=== PATIENT | male | born 1950 ===

== ENCOUNTER 2019-04-10 09:38 | Inpatient (IN) | payer MEDICARE ==
[2019-04-10] VITALS (594 sets, daily range): BP systolic 105–142; BP diastolic 76–99; PULSE 85–95; TEMP 97.4–98.6; O2SAT 81–100
[~2019-04-10] VITALS: Ht 177.8 cm; Wt 123.1 kg
[2019-04-10 09:50] LABS: BASO % 0.4 % (0.0-2.0); EOS # 0.1 (0.0-0.7); EOS % 1.1 % (0-4.0); GRAN # 6.4 (1.4-6.5); GRAN % 64.1 % (42.2-75.2); HEMATOCRIT 39.2 % (37.0-47.0); HEMOGLOBIN 13.4 g/dl (12.5-16.0); LYMPH # 2.4 (1.2-3.4); LYMPH % 24.5 % (20.0-51.0); MEAN CELL VOLUME 94 fl (80.0-100.0); MEAN CORPUSCULAR HEMOGLOBIN 32 pg (27.0-31.0); MEAN CORPUSCULAR HGB CONC 34 g/dl (33.0-37.0); MEAN PLATELET VOLUME 10.4 fl (7.4-10.4); MONO # 0.9 (0.1-0.6); MONO % 8.9 % (1.7-9.3); PLATELET COUNT 140 K/mm3 (130-400); RED BLOOD COUNT 4.16 M/mm3 (4.10-5.30); REDCELL DISTRIBUTION WIDTH-CV 13.2 % (11.5-14.5)
[2019-04-10 09:55] LABS: INR 1.2 (0.8-3.0); PROTHROMBIN TIME 13.8 SECONDS (9.7-12.8)
[2019-04-10 09:58] LABS: ARTERIAL BLD GAS O2 SATURATION 98.5 % (92-100); ARTERIAL BLD GAS TCO2 CT 25.1; ARTERIAL BLOOD GAS BASE EXCESS -3.1 (-2-2); ARTERIAL BLOOD GAS HCO3 23.6 meq/L (22-26); ARTERIAL BLOOD GAS PCO2 48.7 mmHg (35-45)
[2019-04-10 09:58] LABS: PARTIAL THROMBOPLASTIN TIME 26.3 SECONDS (26.0-37.0)
[2019-04-10 09:59] LABS: ARTERIAL BLOOD GAS PO2 158.9 mmHg (80-100)
[2019-04-10 10:08] LABS: ALANINE AMINOTRANSFERASE 39 U/L (9-52); ALBUMIN 3.4 gm/dL (3.5-5.0); ALKALINE PHOSPHATASE 43 U/L (50-136); ANION GAP 6 mmol/L (7-16); AST,SGOT 35 U/L (15-37); BILIRUBIN,TOTAL 1.3 mg/dL (0.0-1.0); BLOOD UREA NITROGEN 23 mg/dL (7-17); CALCIUM 8.2 mg/dL (8.4-10.2); CARBON DIOXIDE 26 mmol/L (22-30); CHLORIDE 107 mmol/L (98-107); CREATININE, serum 0.92 (0.52-1.25); GLUCOSE 174 mg/dL (74-106); POTASSIUM 4.3 mmol/L (3.4-5.0); SODIUM 138 mmol/L (137-145)
[2019-04-10 10:29] LABS: TROPONIN-I < 0.012 ng/mL (0.000-0.035)
--- NOTE | 2019-04-10 12:35 | NUR ---
Received report from CHARISSE De Leon in ED at 1010. Patient arrived at 1035 via stretcher from ED: intubated, riddle in place, dressing to right hip intact with moderate drainage noted. OG placed at 1049: 59 at the teeth, inserted without incident, patient tolerated well Propofol gtt and fentanyl gtt started at 1145, stopped at 1205. Patient extubated at 1235, tolerated well, alert and oriented, able to talk, oxygenation maintaining well.
--- NOTE | 2019-04-10 14:37 | NUR ---
AUTO REBUILDER student met with the patient to discuss a discharge plan. The patient lives alone in [place]. The patient has a cane and a walker and reports independence with ADLs. The patient's PCP is Dr. Rubin in [place] and patient receives medications from [facility] in [place]. The patient does not have advanced directives in the EMR but reports they are completed and designate Flores Lorenzo . The patient plans to return home upon discharge. There are no additional needs at this time.
--- NOTE | 2019-04-10 14:41 | NUR ---
MANUSCRIPT READER student was called to the ED for a code [facility]. The patient was not coding upon arrival. The patient was tranferred to the ICU once ED stablized the patient.
--- NOTE | 2019-04-10 14:50 | NUR ---
Call made to patient pharmacy [facility] in [place] per patient request for medication list. See med rec.
[2019-04-10] MEDS ORDERED: ASPIRIN 81M81 MG/TA2 PO (15:10)
[2019-04-10] MEDS ORDERED: VITAMIN B COMPL1 SGL PO (15:10)
[2019-04-10] MEDS ORDERED: BYSTOLIC10 MG PO (15:11)
[2019-04-10] MEDS ORDERED: LOTREL 5/20 CAP1 CAP PO (15:11)
[2019-04-10] MEDS ORDERED: MYRBETR50MG PO (15:12)
[2019-04-10] MEDS ORDERED: FOSAMAX 70MG TA70 MG PO (15:15)
[2019-04-10] MEDS ORDERED: ZOLOFT 25MG25 MG PO (15:15)
[2019-04-10] MEDS ORDERED: PRILOSEC 20MG20 MG PO (15:16)
[2019-04-10] MEDS ORDERED: TRICOR145 MG PO (15:16)
--- NOTE | 2019-04-10 15:40 | NUR ---
Assessment, family history, and suicide screening completed
--- NOTE | 2019-04-10 16:00 | NUR ---
Shift reassessment complete at this time. Pt complains of increasing R Hip pain. Will administer PRN oxycodone per orders. Vitals stable at this time. Pt denies any other pain or discomfort. Bed in low position, call light within reach. Will continue to monitor.
--- NOTE | 2019-04-10 17:30 | NUR ---
Right hip dressing changed. Large amount of blood noted on dressing and incontinence pad under patient. Kristopher intact, light pressure applied to stop scant bleeding noted with dressing change. New dressing placed: 4x4, abd, foam tape, and hypafix to reinforce. Patient tolerated well, stated pain 20/10 with movement, given medication-see EMAR.
[2019-04-10 17:41] LABS: ARTERIAL BLD GAS O2 SATURATION 96.7 % (92-100); ARTERIAL BLD GAS TCO2 CT 24.8; ARTERIAL BLOOD GAS BASE EXCESS -1.6 (-2-2); ARTERIAL BLOOD GAS HCO3 23.5 meq/L (22-26); ARTERIAL BLOOD GAS PCO2 41.3 mmHg (35-45); ARTERIAL BLOOD GAS PO2 91.4 mmHg (80-100); ARTERIAL BLOOD GAS pH 7.37 (7.35-7.45)
--- NOTE | 2019-04-10 17:43 | NUR ---
PT EXTUBATED TO 5LPM OXYMASK WITHOUT COMPLICATION AT [address] Michel MONTANEZ. BILATERAL BREATHSOUNDS, NO STRIDOR NOTED AT THIS TIME.
--- NOTE | 2019-04-10 18:44 | NUR ---
Pt reports pain is a 10/10 after administration of morphine 1 mg. Ice applied to incision at request of Pt and will administer another 1 mg of morphine per orders at 0.
--- NOTE | 2019-04-10 19:30 | NUR ---
Bedside report given to CHARISSE Story. Care transferred at this time.
--- NOTE | 2019-04-10 19:52 | NUR ---
Patient assessment completed and charted at this time, please see documentation for details. Patient resting in bed, plan of pain care discussed with patient and over phone. Patient still having increased pain, developed plan for him. Will continue to monitor.
--- NOTE | 2019-04-10 22:28 | NUR ---
Additional dose of roxicodone given per patient order.
[2019-04-11] VITALS (655 sets, daily range): BP systolic 124–154; BP diastolic 88–101; PULSE 77–130; TEMP 98–99.1; O2SAT 79–95
[2019-04-11 05:20] LABS: BASO % 0.2 % (0.0-2.0); EOS % 0.3 % (0-4.0); GRAN # 7.7 (1.4-6.5); GRAN % 76.4 % (42.2-75.2); HEMOGLOBIN 12.1 g/dl (13.5-18.0); LYMPH # 1.4 (1.2-3.4); MEAN CELL VOLUME 94 fl (80.0-100.0); MEAN CORPUSCULAR HEMOGLOBIN 33 pg (27.0-31.0); MEAN CORPUSCULAR HGB CONC 35 g/dl (33.0-37.0); MEAN PLATELET VOLUME 10.3 fl (7.4-10.4); MONO # 0.9 (0.1-0.6); MONO % 8.7 % (1.7-9.3); PLATELET COUNT 121 K/mm3 (130-400)
[2019-04-11 05:26] LABS: HEMATOCRIT 34.6 % (42.0-52.0)
[2019-04-11 05:38] LABS: ALBUMIN 3.3 gm/dL (3.5-5.0); BILIRUBIN,TOTAL 1.8 mg/dL (0.0-1.0); CALCIUM 8.4 mg/dL (8.4-10.2); CREATININE, serum 1.05 (0.66-1.25); MAGNESIUM 1.7 mg/dL (1.6-2.3); PHOSPHOROUS 4.3 mg/dL (2.5-4.5); POTASSIUM 3.8 mmol/L (3.4-5.0); TOTAL PROTEIN 5.8 gm/dL (6.4-8.2)
--- NOTE | 2019-04-11 08:25 | NUR ---
NOTIFIED DR FARMER OF PATIENT'S HR CONSISTENTLY BEING ABOVE 130-140 ESTELLA WHILE PATIENT IS TALKING. PT CONTINUES TO BE IN AFIB.
--- NOTE | 2019-04-11 08:40 | NUR ---
PICC intact right upper arm with sterile dressing change done with insertion site cleansed with chloraprep x 1, chlorhexidine impregnated disk applied, skin prep, stat lock, and tegaderm applied. no signs or symptoms of IV complications noted. no concerns voiced. re-wrapped with juan to protect catheter.
--- NOTE | 2019-04-11 09:59 | NUR ---
Initial visit Patient thanked Whipped Topping Finisher for looking in on him, offering God's blessings and keeping him in Whipped Topping Finisher's prayers.
--- NOTE | 2019-04-11 13:04 | NUR ---
REPORT GIVEN TO ADE MCQUEEN ON SURGICAL UNIT. ADE BRINGING SURG BED DOWN TO TRANSFER PATIENT ONTO AND THEN TRANSFER TO SURGICAL FLOOR.
--- NOTE | 2019-04-11 14:12 | NUR ---
STILL AWAITING FOR ADE MCQUEEN TO BRING BED DOWN TO ICU IN ORDER TO TRANSFER PATIENT TO SURGICAL UNIT. ATTEMPTED TO CALL SURGICAL UNIT WITH NO ANSWER. ATTEMPTED TO GET TRANSFERRED TO ADE MCQUEEN WITH NO ANSWER.
--- NOTE | 2019-04-11 14:25 | NUR ---
SURGICAL BED BROUGHT DOWN BY KHUSHBOO HEARD. PT TRANSFERRED TO SURGICAL BED AND TRANSPORTED UP TO SURGICAL ROOM 347. PT'S SISTER AT BEDSIDE AND TRANSPORTED PT'S BELONGINGS WITH PATIENT.
--- NOTE | 2019-04-11 14:30 | NUR ---
PATIENT ARRIVED TO ROOM 347 VIA BED FROM ICU. PATIENT SETTELED INTO ROOM.
--- NOTE | 2019-04-11 15:00 | NUR ---
SEE SHIFT ASSESSMENT.
--- NOTE | 2019-04-11 15:45 | NUR ---
JERZY OVALLES CALLED AND NOTIFIED THAT THE PATIENT IS TACHYPNIC WITH PURSE-LIP BREATHING. PATIENT HAS A WET WASH RAG THAT THE PATIENT IS BITING ON. PATIENT GIVEN PRN MORPHINE AND SCHEDULED TYLENOL WITHOUT RELIEF.
--- NOTE | 2019-04-11 16:31 | NUR ---
REPORT GIVEN TO CHARISSE YANES.
--- NOTE | 2019-04-11 16:58 | NUR ---
Patient resting in bed at this time, call light in reach, ice pack on right hip. Patient reports pain is under control at this time. Will continue to monitor.
--- NOTE | 2019-04-11 18:39 | NUR ---
Family member at bedside throughout the day. Patient in pain after moving from ICU to surgical floor. Call light within reach. Reported off to primary nurse, Maria Del Carmen MCQUEEN.
--- NOTE | 2019-04-11 19:30 | NUR ---
Patient reports pain 5/10, worse with movement. Medicated with Morphine 2mg IVP at this time. Has right PICC, both lumens flushed well.
--- NOTE | 2019-04-11 20:01 | NUR ---
Patient requested staff to continue to keep pain under control through the night since it took so long to get pain under control originally. This nurse and oncoming nurse voiced understanding. Current pain prior to night nurse taking over was 6/10. She will continue to monitor.
--- NOTE | 2019-04-11 21:10 | NUR ---
Patient has CPAP on, rates pain 4/10, Medicated with Oxycodone, scheduled Tylenol and IV Morphine. Dressing to right hip bulky, D/I. Ice pack placed. Has riddle to BSD with yellow urine noted. Pt hoping to get sleep.
--- NOTE | 2019-04-12 00:05 | NUR ---
Patient awake, reports pain is well controlled with Morphine and Oxycodone. Medicated with Morphine 2mg IV at this time.
--- NOTE | 2019-04-12 03:15 | NUR ---
Patient refused ES Tylenol at this time.
--- NOTE | 2019-04-12 05:12 | NUR ---
Patient has elevated BP, medicated with Hydralazine 10mg IV at this time.
[2019-04-12 05:35] VITALS: BP 155/84; PULSE 98
[2019-04-12 06:26] LABS: BASO % 0.2 % (0.0-2.0); EOS % 0.1 % (0-4.0); GRAN # 11.7 (1.4-6.5); GRAN % 85.8 % (42.2-75.2); HEMATOCRIT 40.3 % (42.0-52.0); HEMOGLOBIN 13.9 g/dl (13.5-18.0); LYMPH # 0.9 (1.2-3.4); LYMPH % 6.7 % (20.0-51.0); MEAN CELL VOLUME 93 fl (80.0-100.0); MEAN CORPUSCULAR HEMOGLOBIN 32 pg (27.0-31.0); MEAN CORPUSCULAR HGB CONC 35 g/dl (33.0-37.0); MEAN PLATELET VOLUME 10.9 fl (7.4-10.4); MONO # 0.9 (0.1-0.6); MONO % 6.7 % (1.7-9.3); PLATELET COUNT 138 K/mm3 (130-400); RED BLOOD COUNT 4.34 M/mm3 (4.20-5.60); REDCELL DISTRIBUTION WIDTH-CV 12.9 % (11.5-14.5)
[2019-04-12 06:34] LABS: ALBUMIN 3.8 gm/dL (3.5-5.0); BILIRUBIN,TOTAL 2.3 mg/dL (0.0-1.0); CALCIUM 8.5 mg/dL (8.4-10.2); CREATININE, serum 0.74 (0.66-1.25); MAGNESIUM 1.9 mg/dL (1.6-2.3); PHOSPHOROUS 2.6 mg/dL (2.5-4.5); POTASSIUM 3.6 mmol/L (3.4-5.0); TOTAL PROTEIN 6.8 gm/dL (6.4-8.2)
[2019-04-12 07:42] VITALS: BP 157/101; PULSE 105; TEMP 99.2
--- NOTE | 2019-04-12 08:00 | NUR ---
SEE MORNING ASSESSMENT.
--- NOTE | 2019-04-12 08:36 | NUR ---
PATIENT STATES THAT HE IS FEELING ANXIOUS AND NAUSEATED THIS MORNING. NOTIFIED.
[2019-04-12 11:57] VITALS: BP 158/105; PULSE 100; PULSE 78; TEMP 97.9; TEMP 98.8
[2019-04-12 16:06] VITALS: BP 128/99; PULSE 112; TEMP 98.4
--- NOTE | 2019-04-12 19:43 | NUR ---
Patient awake, medicated with Oxycodone and ES Tylenol at this time for pain to right hip 0/10 laying still and 10/10 with movement. Has rt PICC that flushes well with good blood return. Initiated Potassium replacement 1 of 2 bags to be given. SL to left hand without redness or swelling.
[2019-04-12 20:00] VITALS: BP 147/106; PULSE 66; TEMP 98.3
--- NOTE | 2019-04-12 20:04 | NUR ---
REPORT GIVEN TO CHARISSE WOLFE.
--- NOTE | 2019-04-12 20:40 | NUR ---
Second bag of IV Potassium infusing without problem.
--- NOTE | 2019-04-12 21:44 | NUR ---
Medicated with Morphine 2mg IVP for pain 5/10 to right hip. Patient has CPAP on and is ready for bed. S.O at bedside.
[2019-04-13] VITALS (13 sets, daily range): BP systolic 108–158; BP diastolic 56–111; PULSE 51–90; TEMP 97.7–99.8
--- NOTE | 2019-04-13 03:15 | NUR ---
Patient awake, reports no oral fluid since midnight for possible surgery today. Reports pain to right hip is "minimal", medicated with Morphine 2mg IVP with Zofran 4mg IV. Held Tylenol at this time.
[2019-04-13 06:32] LABS: BASO % 0.2 % (0.0-2.0); EOS # 0.1 (0.0-0.7); EOS % 0.7 % (0-4.0); GRAN # 10.5 (1.4-6.5); GRAN % 76.7 % (42.2-75.2); HEMATOCRIT 38.7 % (42.0-52.0); HEMOGLOBIN 13.4 g/dl (13.5-18.0); LYMPH # 1.6 (1.2-3.4); LYMPH % 11.5 % (20.0-51.0); MEAN CELL VOLUME 94 fl (80.0-100.0); MEAN CORPUSCULAR HEMOGLOBIN 32 pg (27.0-31.0); MEAN CORPUSCULAR HGB CONC 35 g/dl (33.0-37.0); MEAN PLATELET VOLUME 10.7 fl (7.4-10.4); MONO # 1.4 (0.1-0.6); MONO % 10.3 % (1.7-9.3); PLATELET COUNT 152 K/mm3 (130-400); RED BLOOD COUNT 4.14 M/mm3 (4.20-5.60); REDCELL DISTRIBUTION WIDTH-CV 12.7 % (11.5-14.5)
--- NOTE | 2019-04-13 06:44 | NUR ---
Medicated with oral Ativan 0.5mg at this time for anxiety regarding surgery.
[2019-04-13 06:56] LABS: CALCIUM 8.5 mg/dL (8.4-10.2); CREATININE, serum 0.95 (0.66-1.25); MAGNESIUM 2.1 mg/dL (1.6-2.3); PHOSPHOROUS 3.2 mg/dL (2.5-4.5)
--- NOTE | 2019-04-13 09:45 | NUR ---
Patient alert and oriented, answers questions appropriately. See assessment. RLE with incision dressing CDI, no redness noted. 1+ edema to RLE, pulses palpable. NWB to RLE. No c/o at this time.
--- NOTE | 2019-04-13 20:30 | NUR ---
PATIENT COMPLAINS OF SHARP, BURNING PAIN TO RIGHT HIP. MEDICATED WITH MORPHINE 2MG IVP AND OXYCODONE 5MG PO, WELL HS MEDS. DRSG TO RIGHT HIP D/I, ICE PACK IN PLACE. WEARING CPAP AT THIS TIME. IVF INFUSING TO LEFT HAND WITHOUT REDNESS OR SWELLING, RIGHT PICC FLUSHED AT THIS TIME. WEARING SCDS BILATERAL LOWER LEGS. PATIENT REPORTS FEELING RELIEVED FINALLY HAVING HIS SURGERY COMPLETED.
[2019-04-14] VITALS (8 sets, daily range): BP systolic 124–154; BP diastolic 79–128; PULSE 57–113; TEMP 97.5–99
--- NOTE | 2019-04-14 00:11 | NUR ---
Patient complains of 9/10 pain to right hip. Medicated with Morphine 2mg IVP and Tramadol 100mg po. Also given Ativan 0.5mg po at this time.
--- NOTE | 2019-04-14 01:16 | NUR ---
PATIENT CONTINUES TO COMPLAIN OF PAIN, "TWISTING" TO RIGHT HIP. MEDICATED WITH OXYCODONE 10MG PO AND PHENERGAN 25MG FOR MILD NAUSEA.
--- NOTE | 2019-04-14 04:27 | NUR ---
Patient awake, reports pain is much improved. States "I sure was out of it yesterday". Moving right leg without significant discomfort.
[2019-04-14 07:20] LABS: HEMOGLOBIN 12.1 g/dl (13.5-18.0); MEAN CELL VOLUME 94 fl (80.0-100.0); MEAN CORPUSCULAR HEMOGLOBIN 33 pg (27.0-31.0); MEAN CORPUSCULAR HGB CONC 35 g/dl (33.0-37.0); MEAN PLATELET VOLUME 11.6 fl (7.4-10.4); PLATELET COUNT 157 K/mm3 (130-400); RED BLOOD COUNT 3.69 M/mm3 (4.20-5.60); REDCELL DISTRIBUTION WIDTH-CV 12.4 % (11.5-14.5)
[2019-04-14 07:21] LABS: HEMATOCRIT 34.6 % (42.0-52.0)
[2019-04-14 07:33] LABS: CALCIUM 8.4 mg/dL (8.4-10.2); CREATININE, serum 0.82 (0.66-1.25); POTASSIUM 4.3 mmol/L (3.4-5.0)
--- NOTE | 2019-04-14 08:00 | NUR ---
PATIENT IS RESTING IN BED THIS MORNING. PATIENT IS DROWSY, BUT AROUSES EASILY TO NAME. PATIENT STATES THAT HE DID NOT SLEEP WELL DURING THE NIGHT. PATIENT IS A&OX4. IRREGULAR HEART RHYTHM WITH TACHYCARDIA NOTED, VSS. TELE IN PLACE. BOWEL SOUNDS ACTIVE ALL FOUR QUADRANTS. PATIENT TOLERATING DIET WITHOUT ANY COMPLAINTS OF N/V. POSITIVE PEDAL PULSES EQUAL BILATERALLY. CAP REFILL < 3 SECONDS. CMS INTACT. BULKY OCCLUSIVE FOAM TAPE DRESSING TO RIGHT HIP IS CD&I. PICC LINE TO RUE. LEFT HAND TO INT. INDWELLING TANG CATHETER TO DEPENDENT DRAINAGE WITH CLEAR BRIDGETTE URINE PRESENT IN TANG BAG. CALL LIGHT WITHIN REACH. PATIENT DENIES ANY OTHER NEEDS AT THIS TIME.
[2019-04-14 08:18] LABS: BAND 15 % (0-10); LYMPHOCYTE 3 % (20.0-51.0); NEUTROPHILS 79 % (42.0-75.2); PLATELET ESTIMATE NORMAL (NORMAL)
--- NOTE | 2019-04-14 11:51 | NUR ---
Follow-up visit; Patient resting, Pattern Attendant offered spiritual care to his sister, also letting her know Neri is in her prayers and spiritual care is always available at [place].
--- NOTE | 2019-04-14 15:09 | NUR ---
SW met with the patient to review discharge plan and to discuss PT's recommendation of considering post-acute rehab. The patient reports that the still plans to return home upon discharge and will receive help from his friend, Flores. He states he will hit it hard with therapy tomorrow and see how he feels. He states that he would prefer to receive outpatient PT at [facility] in [place], instead of post-acute rehab. SW to continue to monitor and follow.
--- NOTE | 2019-04-14 16:00 | NUR ---
PATIENTS TANG CATHETER DISCONTINUED PER ORDERS. 8 MLS OF STERILE WATER ASPIRATED FROM BALLOON. BALLOON TIP INTACT. PATIENT TOLERATED WELL. ELO CARE AND BED BATH PROVIDED. PATIENT ENCOURAGED TO DRINK PLENTY OF FLUIDS. PATIENTS RIGHT HIP OCCLUSIVE TAPE DRESSING REMOVED. STERI STRIPS IN PLACE OVER INCISION SITE. AQUACEL DRESSING PLACED OVER RIGHT HIP INCISION AND STERI STRIPS. PATIENT TOLERATED WELL.
--- NOTE | 2019-04-14 21:15 | NUR ---
Lying in bed with CPAP on. Removes CPAP for assessment. Respirations deep and labored. When asked patient if this is new symptom patient and spouse deny and say that this is normal for him. Patient explains that sometimes he just takes in deeper breaths per the doctor's orders. Heart rate is irregular, tele shows Afib with BBB. Patient denies pain. Dressing to right hip CDI. Patient says that he is tired and hopes to get sleep tonight. Spouse in room. Denies further needs at this time. Reapplies CPAP.
--- NOTE | 2019-04-14 23:35 | NUR ---
Lying in bed with eyes closed. Eyes open when name called out. Using CPAP while sleeping. Denies pain or shortness of air. Denies further needs at this time.
--- NOTE | 2019-04-15 02:39 | NUR ---
Requests Ativan due to mind racing and unable to go to sleep. Patient says that the previous night he had a Ativan and it helped. Administered Ativan as prescribed. Patient says that he thought he had to pee and by the time he got the urinal ready the sensation was gone. Denies feeling like his bladder is full or painful. Requests milk and ilana crakers. Provided at this time. Patient reapplies CPAP and denies further needs.
[2019-04-15 03:19] VITALS: BP 136/93; PULSE 90; TEMP 97.3
--- NOTE | 2019-04-15 03:30 | NUR ---
Lying in bed with eyes open. Denies pain. Dressing to right hip CDI. Asked patient if he feels the need to urinate and he declines at this time. Asked patient if he feels pressure or uncomfortable because he cannot urinate and the patient declines. Respirations labored with movement or talking. Using CPAP. Denies further needs at this time.
--- NOTE | 2019-04-15 05:46 | NUR ---
Patient able to void 325mL yellow urine. Denies pain with urination. Denies further needs at this time.
--- NOTE | 2019-04-15 06:40 | NUR ---
appears to be dozing but awakens easily, bedside shift report received from CHARISSE Lerma
[2019-04-15 06:58] LABS: BASO % 0.1 % (0.0-2.0); GRAN # 14.1 (1.4-6.5); GRAN % 85.8 % (42.2-75.2); HEMOGLOBIN 11.4 g/dl (13.5-18.0); LYMPH # 0.8 (1.2-3.4); MEAN CELL VOLUME 94 fl (80.0-100.0); MEAN CORPUSCULAR HEMOGLOBIN 33 pg (27.0-31.0); MEAN CORPUSCULAR HGB CONC 34 g/dl (33.0-37.0); MEAN PLATELET VOLUME 11.4 fl (7.4-10.4); MONO # 1.4 (0.1-0.6); MONO % 8.2 % (1.7-9.3); PLATELET COUNT 172 K/mm3 (130-400); RED BLOOD COUNT 3.51 M/mm3 (4.20-5.60); REDCELL DISTRIBUTION WIDTH-CV 12.6 % (11.5-14.5)
[2019-04-15 07:03] LABS: HEMATOCRIT 33.1 % (42.0-52.0)
[2019-04-15 07:16] LABS: CALCIUM 8.7 mg/dL (8.4-10.2); CREATININE, serum 1.3 (0.66-1.25); MAGNESIUM 2.4 mg/dL (1.6-2.3); POTASSIUM 4.5 mmol/L (3.4-5.0)
[2019-04-15 07:47] VITALS: BP 139/97; PULSE 66; TEMP 98.2
--- NOTE | 2019-04-15 08:00 | NUR ---
sitting up on side of bed and has had breakfst and tolerated well, is ready to lie back in bed, technical buyer called and stated his heart rate was elevated, full assessment completed, see interventions for further info, assisted to lying back in bed and is ready to take a nap, CPAP on,
--- NOTE | 2019-04-15 08:05 | NUR ---
called studio technician video operator and she states his heart rate is back down now
--- NOTE | 2019-04-15 09:15 | NUR ---
Dr Garrison and care team in to see patient
--- NOTE | 2019-04-15 09:44 | NUR ---
renal social worker in visiting with patient and his , physical therapy in to work with patient
--- NOTE | 2019-04-15 09:52 | NUR ---
SW attended clinical rounds. The patient's significant other, Flores, at bedside. The patient's WBC count elevated and he is to have a repeat chest x-ray today. The hospitalist then discussed PT's recommendation of post-acute rehab. The patient reports that he would be in agreeance to this. SW then followed up with the patient and Flores and presented and explained the Patient Choice Form. The patient preferred to stay in [place] instead of [place] for privacy and he chose [facility]. Patient Choice Form signed by the patient and he was provided a copy. SW consulted IPR Director, Jeanette. SW awaiting screen.
--- NOTE | 2019-04-15 10:00 | NUR ---
physical therapy states patient was able to ambulate to the doorway and then to recliner, was very sleepy and dozing during exercises
--- NOTE | 2019-04-15 10:30 | NUR ---
remains up in chair, dozes off easily, IV fluids started, will try and take a nap and reminded to use CPAP if he does, verbalizes understanding
--- NOTE | 2019-04-15 10:30 | NUR ---
PICC intact right upper arm. With sterile technique right upper arm PICC dressing change done with insertion site cleansed with ChloraPrep 1, chlorhexidine impregnated disc applied, skin prep, StatLock, and Tegaderm applied. No signs or symptoms of IV complications noted. No concerns voiced. Arm wrapped with Billy to protect catheter.
--- NOTE | 2019-04-15 11:00 | NUR ---
occupational therapy in to work with patient
--- NOTE | 2019-04-15 12:00 | NUR ---
occupational therapy assited patient with am hygiene and he tolerated well, sitting up in chair at this time and eating lunch,
--- NOTE | 2019-04-15 12:30 | NUR ---
had lunch and tolerated well, medicated with tramadol 100mg po per patient's request
[2019-04-15 13:06] VITALS: BP 122/86; PULSE 77; TEMP 98.4
--- NOTE | 2019-04-15 13:29 | NUR ---
physical therapy in to work with patient, ambulated up to nurses station and back to room
--- NOTE | 2019-04-15 14:30 | NUR ---
is ready to take a nap, lights off, CPAP on
[2019-04-15 16:03] VITALS: BP 143/93; PULSE 73; TEMP 97.5
--- NOTE | 2019-04-15 16:05 | NUR ---
has been napping off and on, denies needs, cPAP on
--- NOTE | 2019-04-15 17:30 | NUR ---
awake and resting in bed, lights on and will sit up on side of bed to eat supper
--- NOTE | 2019-04-15 18:40 | NUR ---
bedside shift report given to CHARISSE Altamirano
[2019-04-15 20:09] VITALS: BP 147/75; PULSE 91; TEMP 98.3
[2019-04-15 23:56] VITALS: BP 140/95; PULSE 59; TEMP 98.3
--- NOTE | 2019-04-16 02:41 | NUR ---
patient doing well throughout the night. has been voiding without issue since removing riddle. patient was found trying to get out of bed himself, and was reoriented and reminded that he needed to call for assistance. [facility] picc is saline locked. SCDs and martin hose on. patient states his pain is minimal and denies need for pain medication other than what is scheduled. patient was assisted with setup for his CPAP and has been wearing it all night. aquacell to R hip CDI. no further needs at this time. will continue to monitor.
--- NOTE | 2019-04-16 07:00 | NUR ---
Reported on to CHARISSE Mancilla.
[2019-04-16 07:10] LABS: BASO % 0.1 % (0.0-2.0); EOS # 0.1 (0.0-0.7); EOS % 1.1 % (0-4.0); GRAN # 7.4 (1.4-6.5); GRAN % 72.3 % (42.2-75.2); HEMOGLOBIN 11.5 g/dl (13.5-18.0); LYMPH # 1.6 (1.2-3.4); LYMPH % 15.4 % (20.0-51.0); MEAN CELL VOLUME 96 fl (80.0-100.0); MEAN CORPUSCULAR HEMOGLOBIN 33 pg (27.0-31.0); MEAN CORPUSCULAR HGB CONC 34 g/dl (33.0-37.0); MEAN PLATELET VOLUME 10.9 fl (7.4-10.4); PLATELET COUNT 168 K/mm3 (130-400); RED BLOOD COUNT 3.53 M/mm3 (4.20-5.60)
--- NOTE | 2019-04-16 07:10 | NUR ---
Shift assessment completed. Pt. complained of right hip pain 01/11. Notified nurse. Telemetry leads in place. PICC in R upper arm covered w/ acewrap, CDI. Aquacell dressing R hip, CDI. TRAV/SCD spencer. Ambulated w/ PT, steady gait. AP 107, irregular.
[2019-04-16 07:23] LABS: CALCIUM 8.2 mg/dL (8.4-10.2); CREATININE, serum 0.94 (0.66-1.25)
[2019-04-16 07:25] LABS: HEMATOCRIT 33.7 % (42.0-52.0)
[2019-04-16 07:45] VITALS: BP 152/100; PULSE 73; TEMP 98
[2019-04-16 10:15] VITALS: BP 134/83; PULSE 63; TEMP 97.5
--- NOTE | 2019-04-16 11:16 | NUR ---
Jeanette, IPR Director, reports that they are able to accept the patient. The patient is to discharge today, 04/16, to [facility]. No additional needs at this time.
--- NOTE | 2019-04-16 11:18 | NUR ---
Reported off to CHARISSE Mancilla.
[2019-04-16] MEDS ORDERED: ELIQUIS 5MG PO (11:46)
[2019-04-16] MEDS ORDERED: ZEBETA 5MG5 MG PO (11:47)
[2019-04-16] MEDS ORDERED: TYLENOL 500MG500 MG PO (11:49)
[2019-04-16] MEDS ORDERED: ROXICODONE 55 MG/TAB PO (11:49)
[2019-04-16] MEDS ORDERED: NEURONTIN100 MG/CAP PO (11:50)
[2019-04-16] MEDS ORDERED: ULTRAM 50MG TAB50 MG PO (11:50)
--- NOTE | 2019-04-16 12:22 | NUR ---
PATIENT DISCHARGING VIA WC TO [facility]. PATIENT DISCHARGING WITH RIGHT UPPER ARM PICC. TELE DC'D. SENT PERSONAL BELONGINGS. GAVE REPORT TO CHARISSE VAUGHAN.
== END 2019-04-16 12:22 | DRG 469 ==
LOC: COL.ER 09:38 → EDSEX 10:44 → ICU 10:44 → SURG 04-11 15:19
PROVIDERS: Family Medicine; Internal Medicine Pulmonary Disease; Orthopaedic Surgery; Physician Assistant; ADMIT Hospitalist
PROC: 0SR90JZ Replacement of Right Hip Joint with Synthetic Substitute, Open Approach (ICD-10-PCS; principal; 2019-04-13 13:00)
DX: M16.11 Unilateral primary osteoarthritis, right hip (principal); I46.9 Cardiac arrest, cause unspecified; N17.9 Acute kidney failure, unspecified; I48.20 Chronic atrial fibrillation, unspecified; G47.33 Obstructive sleep apnea (adult) (pediatric); F32.9 Major depressive disorder, single episode, unspecified; R00.1 Bradycardia, unspecified; I48.0 Paroxysmal atrial fibrillation; K21.9 Gastro-esophageal reflux disease without esophagitis; E78.5 Hyperlipidemia, unspecified; D72.829 Elevated white blood cell count, unspecified; F41.9 Anxiety disorder, unspecified; Z79.82 Long term (current) use of aspirin; Z87.891 Personal history of nicotine dependence
CPT/HCPCS: 99223-AI; 99231-AI; 99232-AI; 99239; C1713; C1751; C1776; J0360; J0690; J1100; J2250; J2270; J2370; J2405; J2704; J2795; J3010; J3475; J3480; J7030; J7121

== ENCOUNTER 2019-04-16 09:51 | Inpatient (IN) | payer MEDICARE ==
[~2019-04-16] VITALS: Ht 177.8 cm; Wt 111.4 kg
[~2019-04-16 09:51] MED LIST: ASPIRIN 81M81 MG/TA2 PO; BYSTOLIC10 MG PO; FOSAMAX 70MG TA70 MG PO; LOTREL 5/20 CAP1 CAP PO; MYRBETR50MG PO; PRILOSEC 20MG20 MG PO; TRICOR145 MG PO; VITAMIN B COMPL1 SGL PO; ZOLOFT 25MG25 MG PO
[2019-04-16] MEDS ORDERED: ELIQUIS 5MG PO (11:46)
[2019-04-16] MEDS ORDERED: ZEBETA 5MG5 MG PO (11:47)
[2019-04-16] MEDS ORDERED: TYLENOL 500MG500 MG PO (11:49)
[2019-04-16] MEDS ORDERED: ROXICODONE 55 MG/TAB PO (11:49)
[2019-04-16] MEDS ORDERED: NEURONTIN100 MG/CAP PO (11:50)
[2019-04-16] MEDS ORDERED: ULTRAM 50MG TAB50 MG PO (11:50)
--- NOTE | 2019-04-16 12:29 | NUR ---
Report from CHARISSE Robert. Pt moved to [facility] via wheelchair, TEDS, yellow gown, gripper socks in place, this nurse introduced herself to pt, he replies "I've already had two pounds of meds, so I don't need anymore." Pt took phone call. HOT DOG VENDER assisting with initial vitals and settling into room.
[2019-04-16 12:35] VITALS: BP 136/98; PULSE 66; TEMP 97.4
--- NOTE | 2019-04-16 14:07 | NUR ---
Pt wishes to maintain full code status. ST in assessing pt. Denies pain, TEDS in place.
[2019-04-16 17:51] VITALS: BP 144/90; PULSE 110; TEMP 98
--- NOTE | 2019-04-16 18:25 | NUR ---
Pt ate supper in bed, was at bedside ordering food on phone from outside source. Pt holding head and c/o pain, gave makenzie per request, edu about calling PRN needing pain meds. Answered 's question about last WBC count WNL this am. Brought sterile water for pt's CPAP.
--- NOTE | 2019-04-16 18:42 | NUR ---
Pt has more visitors at this time.
--- NOTE | 2019-04-16 19:20 | NUR ---
Bedside report to CHARISSE Mancuso. María states they live in separate households, but they are "attached at the hip" and she "will be around all the time" after pt's discharge. Pt eating sub sandwich from outside.
--- NOTE | 2019-04-16 19:38 | NUR ---
Bedside shift report received from Alana MCQUEEN. Patient rests in bed eating supper. Significant other Flores in visiting. Telemetery applied. Patient denies needs at this time.
--- NOTE | 2019-04-16 20:30 | NUR ---
Patient stood at bedside and used urinal. Urine clear isauro. HS meds along with ativan for sleep/anxiety reviewed and given. Reports pain 0 at rest and 4-5 with movement. Max assist with legs into bed and RLE elevated on pillow. hose removed by nurse and SCD's applied. Patient applies CPAP with set up help only. Patient rests with eyes closed shortly after application of CPAP.
[2019-04-17] VITALS (11 sets, daily range): BP systolic 147–156; BP diastolic 95–112; PULSE 48–134; TEMP 98–99.4
--- NOTE | 2019-04-17 03:35 | NUR ---
Patient awake and nurse into check. Urinal on floor and emptied. Patient spilled urine on floor and cleaned/CPAP mask on floor and called RT for cleaning instructions and stated do not have cleaning supplies. Nurse wiped CPAP tubing and mask off with peroxide diluted in saline on 4x4s and set aside to dry. Patients newspaper bag wet with urine. Letters set aside and newpaper bag thrown away after ok'd by patient. Tramadol 50 mg given for right hip pain. Bed alarms on and call light in reach.
--- NOTE | 2019-04-17 05:06 | NUR ---
PATIENT RESTS WITH EYES CLOSED. RESPIRATIONS WITH EASE. CPAP ON.
[2019-04-17 06:15] LABS: CALCIUM 8.5 mg/dL (8.4-10.2); CREATININE, serum 0.82 (0.66-1.25); POTASSIUM 4.1 mmol/L (3.4-5.0)
--- NOTE | 2019-04-17 08:00 | NUR ---
UPON ENTRY TO THE ROOM THE PATIENT IS SITTING UP IN THE CHAIR AT THE BEDSIDE. PATIENT IS A&OX4. TACHYCARDIA WITH IRREGULAR RHYTHM NOTED, VSS. TELE IN PLACE. BOWEL SOUNDS ACTIVE ALL FOUR QUADRANTS. PATIENT TOLERATING DIET WITHOUT ANY COMPLAINTS OF N/V. PICC LINE TO RUE. AQUACEL TO RIGHT HIP IS CD&I. POSITIVE PEDAL PULSES EQUAL BILATERALLY. CAP REFILL <3 SECONDS. CMS INTACT. NON-PITTING EDEMA TO BLE. PATIENT IS RATING HIS RIGHT HIP PAIN AN 8/10 ON A 0-10 SCALE. PATIENT GIVEN PRN DOSE OF PO OXYCODONE PRIOR TO WORKING WITH PHYSICAL THERAPY. CALL LIGHT WITHIN REACH. PATIENT DENIES ANY OTHER NEEDS AT THIS TIME.
--- NOTE | 2019-04-17 08:35 | NUR ---
DR. STOKES CALLED AND NOTIFIED THAT THE PATIENT KEEPS SETTING OFF HIS TELEMETRY HIGH RATE ALARM. ORDER GIVEN TO CONTACT WITH CARDIOLOGY REGARDING THE HIGH RATE ALARM. CALLED AND MESSAGE LEFT. WILL WAIT FOR RETURN PHONE CALL.
--- NOTE | 2019-04-17 15:34 | NUR ---
MISSY met with the patient to complete initial intake, as the patient is new to [facility]. The patient lives alone in [place]. He reports independence with ADLs and has a cane, walker, and CPAP. The patient's PCP is Dr. Hannah Rubin and he receives his medications at [facility]. He reports no difficulties obtaining his meds. The patient does not have advanced directives in EMR, but he states that he does have them completed. He states that his life partner, Flores Lorenzo (ph#[phone]), is DPOA-HC. The patient plans to return home upon discharge. A family meeting with his life partner, via speaker phone, was scheduled for tomorrow at 1330. MISSY informed Katelin CORMIER. MISSY to continue to follow.
--- NOTE | 2019-04-17 19:15 | NUR ---
REPORT GIVEN TO CHARISSE ZAMARRIPA.
--- NOTE | 2019-04-17 20:15 | NUR ---
TELE REVEALS AFIB. HR 130'S. PT C/O RT HIP PAIN. SEE MAR FOR PAIN MED GIVEN.
--- NOTE | 2019-04-17 20:56 | NUR ---
RECIEVED BEDSIDE SHIFT REPORT FROM ADE RUFF RN. PT RESTING IN BED. WATCHING TV. ALERT & ORIENTED. NO COMPLAINTS AT THIS TIME. TELE IN PLACE. CALL LIGHT IN REACH. BED ALRM SET.
--- NOTE | 2019-04-17 20:58 | NUR ---
RECHECKING B/P. 152/109. HR AFIB 130'S. ASYMPTOMATIC. CALLED ANGIE FINK. SHE WILL CALL BACK IN A FEW MINUTES.
--- NOTE | 2019-04-17 21:06 | NUR ---
NOTIFIED TELE FOR UPDQATE REPORT. HR NOW BETWEEN 80-95. HAS BEEN UP TO 130'S. CONTINUES IN AFIB.
--- NOTE | 2019-04-17 21:52 | NUR ---
TRANSDATE 5MG IV GIVEN ORDERED.
--- NOTE | 2019-04-17 22:15 | NUR ---
ANGIE MATSON NOTIFIED OF PERSISTENT HYN. SEE VS. NEW ORDERS NOTED. PT RESTING QUIETLY WITH CPAP ON RA IN PLACE. NO EVIDENCE OF PAIN.
--- NOTE | 2019-04-17 22:20 | NUR ---
ZEBETA 5MG PO GIVEN ORDERED.
--- NOTE | 2019-04-17 22:52 | NUR ---
PT RESTING W/ CPAP IN PLACE. BP SLOWLY COMING DOWN. NOW 153/95. WILL CONTINUE TO WATCH.
[2019-04-18] VITALS (10 sets, daily range): BP systolic 135–162; BP diastolic 60–108; PULSE 52–84; TEMP 98–98.8
--- NOTE | 2019-04-18 00:46 | NUR ---
NOTIFIED ANGIE FINK BP 144/100. NO NEW ORDERS. PT RESTING W/ CPAP IN PLACE.
--- NOTE | 2019-04-18 05:44 | NUR ---
BP STILL ELEVATED AT 155/105 MANUAL READING. NOTIFIED ANGIE FINK. NEW ORDER TO REPORT TO DR STOKES & CARDIOLOGY THIS MORNING.
--- NOTE | 2019-04-18 11:21 | NUR ---
Report from CHARISSE Hammond. Pt ate breakfast in bed, placed his CPAP on again prior to therapy. TELE in place, SCDs on, gripper socks on, aquacel dressing with scant drainage, intact. Reported elevated BPs to Dr. Zacarias who states not to increase beta blockers, made additional nursing order to this effect. See orders for PRN hydralazine. Rechecked BP after morning meds and prior to new dose of zestril. Offered ice for rt thigh pain. Notified [facility] services that PICC dressing had thin serosanguinous drainage present, she states she will change it. Pt needs some prompting for answering some of nurse's questions. Pleasant.
--- NOTE | 2019-04-18 13:49 | NUR ---
Attended family conference with pt and María on speaker phone, questions answered about meds and a. fib and pain and anxiety. Ultram given prior to therapy session, hydralazine given for DBP >100, edu pt about new order.
--- NOTE | 2019-04-18 14:09 | NUR ---
MISSY attended a family meeting with the patient and the patient's life partner, Flores, on speaker phone. Also present was IPR Director, PT, OT, ST, and the patient's RN. IPR Director, Jeanette, started by explaining the purpose of the meeting. PT/OT/ST then discussed how the patient is progressing. The patient's RN provided clinical updates. Flores informed the team about what goals she would like for the patient, such as getting up and down 10 stairs for her home. The patient expressed his apprehension with therapy, due to his blood pressure. The team acknowledged goals and concerns and answered all the patient and Flores's questions. The patient is to be re-evaluated next Sunday. The patient and Flores are in agreeance to this plan. Flores requests that she be on speaker phone when SW goes over the IPR Team Conference Note on Sunday. SW to continue to follow.
--- NOTE | 2019-04-18 14:45 | NUR ---
PICC intact right upper arm with sterile dressing change done with insertion site cleansed with chloraprep x 1, chlorhexidine impregnated disk applied, skin prep, stat lock, and tegaderm applied. no signs or symptoms of IV complications noted. no concerns voiced. re-wrapped with juan to protect catheter. small amount of yellow serrous drainage noted on dressing prior to dressing change. no further drainage noted.
--- NOTE | 2019-04-18 17:08 | NUR ---
Re-applied and corrected location of two leads to TELE, changed battery. Pt eating sitting bedside, denies coughing.
--- NOTE | 2019-04-18 19:27 | NUR ---
Pt resting in bed. No distress noted. Pt rates R hip pain 4/10 at rest and denies need for pain medication at this time. Respirations even and unlabored. Lungs clear. [place] is rounded, but soft and nontender. BS+. Pt denies nausea. Voiding without difficulty. R hip aquacell with scant drainage noted. Telemetry in place- A.fib. Heart rhythm is irregular with increased rate. Pt denies needs at this time. Will continue to monitor.
--- NOTE | 2019-04-18 20:06 | NUR ---
Bedside report to CHARISSE Castro. Pt denies pain at this time, seems more relaxed. Hydralazine given once for DBP 101.
--- NOTE | 2019-04-18 20:33 | NUR ---
Pt up to bathroom with walker, gait belt and assist. Well tolerated. Voiding clear, yellow urine without difficulty. Pt reports pain is still manageable and denies need for pain medication. HS medications given, including PRN Ativan per pt request.
--- NOTE | 2019-04-19 05:42 | NUR ---
Pt up to bathroom and back to bed without difficulty. Patient rating pain 7/10 this AM in R hip. PRN pain medication administered. Pt slept periodically throughout the night. No further needs voiced.
[2019-04-19 06:00] VITALS: BP 150/86; PULSE 102; TEMP 98.4
--- NOTE | 2019-04-19 08:58 | NUR ---
Bedside report from CHARISSE Castro with CHARISSE Escamilla orientee. Pt had CPAP in place, turned bed alarm on, call lt in reach, wants to wait to eat breakfast. PICC with juan intact. Denies pain at rest. Called to toilet, SCIENTIFIC ASSOCIATE assisted. Alert, pleasant, some minor cog deficiencies.
--- NOTE | 2019-04-19 09:00 | NUR ---
REPORTS RECEIVED FROM NIGHT NURSE. CALL LIGHT/WATER PITCHER WITHIN PATIENT'S REACH, BED IN LOW POSITION.
--- NOTE | 2019-04-19 12:00 | NUR ---
PATIENT UP WITH 1 PERSON ASSIST/GAIT BELT AND WALKER. REPORTS HAS NOT HAD BM IN PAST 3 DAYS AND AGREED TO START TAKING MIRALAX AND STOOL SOFTENER. CONTINUES TO WEAR CPAP WHEN NAPPING DURING DAY HOURS. REPORTS EXPECTING LOTS OF COMPANY TODAY. SEE eMAR FOR MEDS GIVEN.
--- NOTE | 2019-04-19 12:55 | NUR ---
Pt's tele readout showed asystole/noisy signal when pt transferring out of recliner and into bed with CHARISSE Escamilla. Pt to bed with SCDs to BLE, TEDs and yellow gripper socks in place. Ice to Rt hip, dressing intact. Cont A. Fib, lungs CTA, pulses x4 strong, BLE fleshy without pitting. Pt pleasant. Edu about taking prune juice, bowel sounds present, abd obese and distended. Pt denies SOA, N/V.
--- NOTE | 2019-04-19 14:51 | NUR ---
REPORTS ATE 60 PERCENT OF LUNCH MEAL TODAY.
--- NOTE | 2019-04-19 16:32 | NUR ---
Pt's friends and María visited today.
[2019-04-19 18:19] VITALS: BP 156/96; PULSE 86; TEMP 97.6
--- NOTE | 2019-04-19 19:00 | NUR ---
REPORT GIVEN TO FINANCIAL ADVISER NURSE WITH CARE RESUMED. CALL LIGHT/WATER WITHIN PATIENT'S REACH. BED IN LOW POSITION.
--- NOTE | 2019-04-19 19:22 | NUR ---
Bedside report with CHARISSE Escamilla to CHARISSE Koroma. Pt returned to bed, bed alarm on, call lt in reach, removed TEDS, donned yellow gripper socks and SCDs.
[2019-04-19 20:10] VITALS: BP 167/109; PULSE 90
--- NOTE | 2019-04-19 20:10 | NUR ---
Upon assessment patient is resting in bed, denies significant pain, rating it at 4/10. No nausea reported. Aquacel to right hit CDI. Patient up to bathroom, standby assist with gait belt and walker. Patient tolerated activity well. BP rechecked, elevated at 167/109. PO hydralazine given at this time. Ice pack refilled and placed to right hip. SCDs placed. No other needs reported/observed.
[2019-04-20 05:00] VITALS: BP 156/109; PULSE 92
--- NOTE | 2019-04-20 07:21 | NUR ---
Patient report given to CHARISSE Kang and CHARISSE Warner. Patient slept well throughout the night with cpap in place. BP slightly elevated in evening, hydralazine given. No other needs observed at this time.
[2019-04-20 08:11] VITALS: BP 153/104; PULSE 105
--- NOTE | 2019-04-20 08:33 | NUR ---
RECEIVED REPORT FROM NIGHT NURSE. PATIENT RESTING IN BED UPON ENTERING ROOM, AROUSED WITH NAME CALLED. VITAL SIGNS REPEATED, SEE VS INTERVENTION, SEE eMAR FOR APRESOLINE GIVEN. CALL LIGHT/WATER WITHIN PATIENT'S REACH. PATIENT STATED HE DID HIS OWN ORAL CARE EARLIER. STILL PASSING FLATUS BUT NO BM YET THIS MORNING. PATIENT AGREEABLE TO TAKE PRN MIRALAX AND COLACE AND WILL ALSO TAKE WARMED PRUNE JUICE THIS MORNING TO FACILITATE BM AND WAS ALSO OFFER SUPP IF ORAL STOOL MEDS ARE NOT SUCCESSFUL TODAY. BED IN LOW POSITION. WEARS CPAP INDEPENDENTLY.
[2019-04-20 11:50] VITALS: BP 156/92; PULSE 79
[2019-04-20 17:13] VITALS: BP 142/99; PULSE 70; TEMP 99.7
--- NOTE | 2019-04-20 18:00 | NUR ---
AQUACELL DRESSING CHANGED TO RIGHT HIP, OBSERVING RIGHT HIP INCISION WITH INCISION WELL APPROXIMATED, INTACT WITH RUBEN WITH NO REDNESS OR ACTIVE DRAINAGE. SKIN SURROUND INCISION CLEAR WITH NO SWELLING. NEW AQUACELL DRESSING PLACED TO RIGHT HIP INCISION AREA WITH NO PROBLEMS WITH TIME/DATE OF CHANGE. PATIENT TOLERATED PROCEDURE WELL WITH NO FURTHER COMPLAINTS.
--- NOTE | 2019-04-20 20:30 | NUR ---
PT RESTING IN BED. FLAT AFFECT. QUIET. PAIN MED WITH HS MED PER REQUEST. RLE SWOLLEN. ENC ELEVATION AND SCD'S. COMPLIANT. SEE MAR FOR ANY PAIN MEDS GIVEN. CALL LIGHT IN REACH. bed alarm set.
[2019-04-21 02:55] VITALS: BP 168/113; PULSE 77; TEMP 97.9
--- NOTE | 2019-04-21 03:40 | NUR ---
BP 168/113 APRESOLINE 10MG PO GIVEN.
[2019-04-21 05:15] VITALS: BP 162/88
--- NOTE | 2019-04-21 11:41 | NUR ---
First visit from the medical corps officer. No needs right now.
--- NOTE | 2019-04-21 13:33 | NUR ---
Admission QIM scores were reviewed by the team. Code of 3 chosen for sit to lying was determined by team discussion to be the most usual performance before interventions for this patient during the assessment period. Code of 4 chosen for Chair/hja-be-langy transfer was determined by team discussion to be the most usual performance for this patient during the assessment period. Code of 3 chosen for car transfer was determined by team discussion to be the most usual performance before interventions for this patient during the assessment period.--Jeanette Story, PD
--- NOTE | 2019-04-21 16:01 | NUR ---
MISSY met with the patient to follow up with after the weekend. The patient reports that everything is going great. He states that he is still just concerned about getting his blood pressure under control and how the doctors are working with him on this. MISSY reviewed how the team meeting is Sunday and how MISSY will follow up with him and his life partner, Flores, afterwards. The patient had no other questions or concerns for MISSY at this time. SW to continue to follow.
--- NOTE | 2019-04-21 16:11 | NUR ---
Patient resting in bed with call light in reach and bipap on watching TV. Patient attended all therapies today. Reported having pain, but did not want to take anything stronger then Tylenol today due to constipation issues this weekend. Patient tolerating diet well today.
[2019-04-21 18:29] VITALS: BP 141/98; PULSE 67; TEMP 99.3
--- NOTE | 2019-04-21 21:00 | NUR ---
RESTING IN BED. ALITTLE RESTLESS. ATIVAN GIVEN. SCD'S ON BILAT. PT ABLE TO POSITION SELF TO SIDE OF BED AT TIMES. ALARM SOUNDS. USES URINAL AND AT TIMES AMB TO BR W/ WALKER /STAFF. REMINDED PT OF SAFETY RECOMMENDATIONS. TELEMETRY CONTINUES- INDICATES AFIB. PT DENIES CARDIAC SYMPTOMS. CALL LIGHT IN REACH. BED ALARM SET.
--- NOTE | 2019-04-21 23:40 | NUR ---
PT C/O LT LATERAL ANKLE PAIN. OVER USE IN THERAPY TODAY. TRAMDOL GIVEN. LT LAT ANKLE SL MORE SWOLLEN THAN RLE. PINK AND WARM. PPP. ICE PACK AND ELEVATED BLE ON PILLOWS. USES CPAP QHS.
[2019-04-22 05:38] VITALS: BP 152/98; PULSE 100; TEMP 98.1
--- NOTE | 2019-04-22 05:39 | NUR ---
PT SITTING ON SIDE OF BED. STILL HAVING PAIN IN LT LATERAL ANKLE. NO OBVIOUS SIGN OF INJURY. PPP+.SEE MAR FOR PAIN MED GIVEN. PT FEELS HE OVER DID IT IN THERAPTY AND HE MAY POSSIBLY NEED AN XRAY. PT RELATED HE DOESNT THINK HE CAN DO THERAPY THIS AM. ENC PT TO LAY BACK AND ELEVATE LLE AND APPLY ICE. CALL LIGHT IN REACH.
--- NOTE | 2019-04-22 07:23 | NUR ---
REPORT RECEIVED FROM STONE CIRCULAR SAWYER NURSE, SITTING AT SIDE OF BED, COMPLAINS OF LATERAL LEFT ANKLE PAIN, OBSERVED SWELLING TO SIDE WITH NO DISCOLORATION. CALL LIGHT/WATER WITHIN REACH, WANTS TO CONTINUE TO SIT AT SIDE OF BED FOR BREAKFAST.
--- NOTE | 2019-04-22 08:52 | NUR ---
SHELBY,PT, ATTEMPTED ANA WRAP TO LEFT ANKLE FOR SUPPORT/COMFORT WHICH PATIENT STATES HE STILL HAS DISCOMFORT BUT ABLE TO BEAR WEIGHT TO LLE. SUGGESTED BY PT, WILL ASK ABOUT ORTHO CONSULT FOR CONTINUED LLE ANKLE PAIN FOR FURTHER EVALUATION IF APPROPRIATE FROM DR STOKES.
--- NOTE | 2019-04-22 10:56 | NUR ---
TELE CALLED REPORTING INTERMITTANT SIGNAL, CHECKED WITH PT/IN GROUP PT WITH PATIENT IN NO OUTWARD SIGNS OF DISTRESS AND NO C/O CHEST PAIN. RELAYED REPORTED FINDINGS TO TELE
--- NOTE | 2019-04-22 13:00 | NUR ---
PICC intact right upper arm. Small amount of yellow serous drainage noted at site. With sterile technique right upper arm PICC dressing change done with insertion site cleansed with ChloraPrep 1, chlorhexidine impregnated disc applied, skin prep, StatLock, and Tegaderm applied. No other signs or symptoms of IV complications noted. No concerns voiced. Arm wrapped with Billy to protect catheter. No further drainage noted.
--- NOTE | 2019-04-22 13:25 | NUR ---
XRAY DONE PER DO.
[2019-04-22 15:20] VITALS: BP 137/97; PULSE 79; TEMP 97.5
--- NOTE | 2019-04-22 18:45 | NUR ---
REPORT GIVEN TO NON LINEAR EDITOR NURSE. PATIENT RESTING IN BED VISITING WITH FRIEND. CALL LIGHT WITHIN REACH.
--- NOTE | 2019-04-22 21:00 | NUR ---
Shift assessment complete. Patient in bed, awake. States pain 3/10 in left ankle and right hip. Declines prn pain medication. SCD's placed on BLE. Tele on, HR noted to be irregular. Denies need for further needs at this time. Will continue to monitor.
--- NOTE | 2019-04-23 00:15 | NUR ---
Patient dangling at bedside. States pain in 10/10 in left foot/toes. He states he has had an issue with gout before, and would like his uric acid level tested. Will draw extra tube with labs in the morning and pass on to day shift RN his request, so Dr. Zacarias can be notified. Patient agreeable to plan. Denies further needs at this time. Will continue to monitor.
[2019-04-23 03:18] VITALS: BP 150/106; PULSE 102; TEMP 98
[2019-04-23 05:30] VITALS: BP 140/99
[2019-04-23 07:28] LABS: BASO % 0.3 % (0.0-2.0); EOS % 0.3 % (0-4.0); GRAN # 10.1 (1.4-6.5); GRAN % 79.6 % (42.2-75.2); HEMOGLOBIN 10.8 g/dl (13.5-18.0); LYMPH # 1.2 (1.2-3.4); LYMPH % 9.3 % (20.0-51.0); MEAN CELL VOLUME 96 fl (80.0-100.0); MEAN CORPUSCULAR HEMOGLOBIN 32 pg (27.0-31.0); MEAN CORPUSCULAR HGB CONC 34 g/dl (33.0-37.0); MEAN PLATELET VOLUME 10.2 fl (7.4-10.4); MONO # 1.2 (0.1-0.6); MONO % 9.6 % (1.7-9.3); PLATELET COUNT 224 K/mm3 (130-400); RED BLOOD COUNT 3.35 M/mm3 (4.20-5.60)
[2019-04-23 07:37] LABS: HEMATOCRIT 32.1 % (42.0-52.0)
[2019-04-23 07:42] LABS: CALCIUM 8.4 mg/dL (8.4-10.2); CREATININE, serum 0.97 (0.66-1.25); MAGNESIUM 1.9 mg/dL (1.6-2.3); POTASSIUM 3.9 mmol/L (3.4-5.0)
--- NOTE | 2019-04-23 09:08 | NUR ---
Dr. Zacarias called and gave orders for add on Uric Acid to check for gout. Lab order was placed and call to lab was verified. Awaiting results.
--- NOTE | 2019-04-23 09:20 | NUR ---
Currently working with therapy at this time.
[2019-04-23 10:20] VITALS: BP 138/99
--- NOTE | 2019-04-23 14:30 | NUR ---
Reviewed team conference w/ pt & his significant other. They stated they understood & agreed w/ current functional ability. Informed them of d/c for 04/29/19, w/ recommendation for outpatient PT. They were both fine w/ this plan. We did talk about the left foot pain & doctor starting him on predisone, which should help. Told them if the pain gets better sooner than we could consider d/c sooner. They stated they understood. They had no questions/concerns at this time. MISSY will continue to work w/ them on d/c planning.
--- NOTE | 2019-04-23 17:09 | NUR ---
MISSY presented and discussed the IPR Team Conference Note with the patient and his life partner, Flores. MISSY reviewed how the team's recommendation is a discharge for next Sunday, 04/29, with outpatient PT and a shower seat. The patient and Flores were in agreeance to this. Flores states that she has a transfer seat for the patient to use. The patient reports that he plans to receive the outpatient PT at [facility] in [place] and that he will schedule the appointment. The patient and Flores had no other questions or concerns for SW at this time. SW to continue to follow.
[2019-04-23 18:24] VITALS: BP 135/94; PULSE 101; TEMP 97.6
--- NOTE | 2019-04-23 19:29 | NUR ---
Patient's uric acid results came back normal. Dr. Zacarias reported that patient does have classic signs of gout in his left great toe. See new orders for Prednisone. Patient had a shower today see new tele leads on patient. Incision site is CDI and shows no signs of drainage. Patient reported that his walker that he brought with him when he was in surgical department is now gone. Leola with ST was made aware of this item currently missing. PT room was checked and other patient rooms were checked to see if the walker had been switched out by accident. Will continue to look for this item. It was not labeled when they arrived to the hospital. Patient was very tired today, due to not getting much sleep last night. Rested in between therapies today. Patient was found to have transferred from his bed to the bathroom and from bathroom to bed on his own two times today. He was educated on the need to use his call light each time. Will continue to monitor. Night nurse was made aware of this.
--- NOTE | 2019-04-23 20:00 | NUR ---
FOUND EVIDENCE OF PT UP IN ROOM WITH WALKER AROUND 194. BED ALARM SET. ENC PT TO CALL FOR ASSIST PRIOR TO GETTING UP. PT RESTING IN BED. RELATES FEELS MUCH BETTER TONIGHT. GOUT PAIN GONE. +2 BILAT LE EDEMA. SCD'S ON BILAT. TELEMETRY STILL AFIB. CALL LIGHT IN REACH. BED ALARM SET.
[2019-04-24 04:30] VITALS: BP 140/82; PULSE 108; TEMP 98.1
--- NOTE | 2019-04-24 04:52 | NUR ---
PT HAS SLEPT INTERMITTINGLY THROUGH THE NIGHT. DENIES PAIN.
--- NOTE | 2019-04-24 06:29 | NUR ---
PT TO BR WITH WALKER IMPULSIVELY FROM RECLINER. POOR SAFETY JUDGEMENT. LEFT WALKER TO HIS SIDE FACING SHOWER. REMINDED PT TO CALL FOR ASSIST. AND HE HAS NOT BEEN MADE MOD I IN ROOM. NEEDS SAFETY CUES. PT DENIES FURTHER PAIN. RELATES "I FEEL BACK TO NORMAL." BACK TO BED. CALL LIGHT IN REACH. BED ALARM SET.
[2019-04-24 16:16] VITALS: BP 159/100; PULSE 54; TEMP 98.4
[2019-04-24 18:53] VITALS: BP 145/90
--- NOTE | 2019-04-24 20:30 | NUR ---
Patient's walker was found today and now has his name placed on it for an identifier. Patient was made Mod I in his room per PT today. He has tele in place and is currently in AFIB. Will continue to monitor. He attended all therapies. Incision to right hip is CDI and aqucel is in place. Patient reported that he was taking care of some of his bills today. He denied questions this afternoon. Will continue to monitor. Reported off to night nurse.
--- NOTE | 2019-04-24 23:51 | NUR ---
MOD I IN ROOM WITH WALKER. ENC PT TO CALL FOR ASSIST IF NEEEDING ASSIST. REMINDED PT OF HIP AND SAFETY PREACAUTION. PT AGREED. TELE CONTINUES. AFIB. NO PAIN IN LT FOOT- GOUT RESOLVED. CALL LIGHT IN REACH.
[2019-04-25 05:43] VITALS: BP 162/72; PULSE 70; TEMP 98
--- NOTE | 2019-04-25 10:47 | NUR ---
PT. IS NOT ABLE TO WEAR TEDS AND NO SIZE AVAILABLE IN HOSPITAL-REPORTED TO NURSE,RAMÓN
[2019-04-25 15:39] VITALS: BP 140/82; PULSE 112; TEMP 98.2
--- NOTE | 2019-04-25 16:05 | NUR ---
faxed [facility] note stating that pt is not d/c until after his f/u appt for staple removal with them, may rehab nurse remove arline.
--- NOTE | 2019-04-25 16:39 | NUR ---
MISSY attempted to meet with the patient to follow up. The patient was on the phone. SW to continue to follow.
--- NOTE | 2019-04-25 18:35 | NUR ---
Pt kizzy mod I in rm w/ walker. Applied ANA wraps to BLE from feet to below knees as TEDS are too tight. Pt kizzy well, applied grippers
--- NOTE | 2019-04-25 19:08 | NUR ---
Bedside report to CHARISSE Mancuso. Pt kizzy mod I in rm w/ walker. Billy wraps intact, pt denies needs, TELE and gripper socks in place, walker in reach.
--- NOTE | 2019-04-25 21:30 | NUR ---
HS meds all reviewed and given. Denies need for pain med. Denies pain. Is modified independent in room with walker. Alert/pleasant. Snack of chocolate icecream given.
--- NOTE | 2019-04-26 00:06 | NUR ---
Patient having difficulty falling asleep and requested ativan-given. Denies pain. Has CPAP on. SCD's left off for safety due to modified independent in room. Patient requested juan wraps to legs be removed and done. Tele box changed out-not working even after lead pads changed and checked.
--- NOTE | 2019-04-26 02:09 | NUR ---
Patients bed alarm alarming and nurse in. Patient assisted up to bathroom. Gait slow steady. Voids and reclines back in chair. States yes to getting sleep tonight.
--- NOTE | 2019-04-26 02:13 | NUR ---
Patient has been resting with eyes closed. Respirations with ease. CPAP on.
--- NOTE | 2019-04-26 03:23 | NUR ---
Patient ambulated in hallway with nurse occasional CGA and verbal/directional cueing. Sits up in recliner.
[2019-04-26 04:43] VITALS: BP 150/89; PULSE 72; TEMP 97.5
--- NOTE | 2019-04-26 06:35 | NUR ---
PATIENT REPORTS NOT REALLY TO HAVING PAIN AND "YES" TO GETTING SLEEP THIS NOC. DENIES NEED.
--- NOTE | 2019-04-26 08:00 | NUR ---
UPON ENTRY TO THE ROOM THE PATIENT IS RESTING IN BED. PATIENT IS A&OX4. IRREGULAR HEART RHYTHM WITH REGULAR RATE NOTED, VSS. TELE IN PLACE. BOWEL SOUNDS ACTIVE ALL FOUR QUADRANTS. PATIENT STATES THAT HE HAS SOME SOB, BUT STATES ITS NO WORSE THAN HIS NORMAL. PATIENT HAS A PRODUCTIVE COUGH WITH SCANT AMOUNTS OF THICK CLEAR SPUTUM. PATIENT TOLERATING DIET WITHOUT ANY COMPLAINTS OF N/V. PICC LINE TO RUE. RIGHT HIP AQUACEL DRESSING IN CD&I. POSITIVE PEDAL PULSES EQUAL BILATERALLY. CAP REFILL <3 SECONDS. CMS INTACT. 1+ PITTING-EDEMA TO BLE. CALL LIGHT WITHIN REACH. PATIENT DENIES ANY OTHER NEEDS AT THIS TIME.
[2019-04-26 16:51] VITALS: BP 139/82; PULSE 52; TEMP 98.4
--- NOTE | 2019-04-26 18:59 | NUR ---
REPORT GIVEN TO CHARISSE PARK.
--- NOTE | 2019-04-26 19:00 | NUR ---
Report received from Yasmine MCQUEEN. Patient sitting up in recliner dozing.
--- NOTE | 2019-04-26 19:07 | NUR ---
Patient rests in bed visiting with several visitors in room. Denies needs. Bedside shift report received from Angélica MCQUEEN.
--- NOTE | 2019-04-26 19:30 | NUR ---
HS meds all reviewed and given. Denies need for pain med. Sits up in recliner watching football game and visits on phone. States he'll wear SCD's tonight. Safety reminders given to remove SCD's prior to getting up.
--- NOTE | 2019-04-26 22:00 | NUR ---
Patient awake in bed and denies pain. SCD's applied.
--- NOTE | 2019-04-27 00:20 | NUR ---
Patient requests ativan "can't shut my brain off" and given. Up to the bathroom with walker gait steady. Nurse put more sterile water in CPAP canister.
--- NOTE | 2019-04-27 01:20 | NUR ---
Patient sitting up in bed on phone.
--- NOTE | 2019-04-27 02:00 | NUR ---
Rests quietly in bed. CPAP on.
[2019-04-27 05:25] VITALS: BP 150/92; PULSE 73; TEMP 97.6
--- NOTE | 2019-04-27 14:07 | NUR ---
Patient resting in recliner, call light in reach and is independent in his room.
--- NOTE | 2019-04-27 15:52 | NUR ---
Patient had a shower this morning and was independent with this task. Patient is independent in his room and uses call light appropriatly. 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 Tolerating diet well drinking all of his afternoon snack. Denies questions at this time.
[2019-04-27 17:19] VITALS: BP 143/73; PULSE 91; TEMP 98.9
--- NOTE | 2019-04-27 19:36 | NUR ---
Patient resting in recliner at this time. Denied questions, but did report that he was excited about going home this week. Patient ate well and was in a pleasent mood this shift. Reported off to night nurse.
--- NOTE | 2019-04-27 21:43 | NUR ---
pt doing well. mostly independent. no issues or concerns. gave prn oxy. call light within reach, will continue to monitor
--- NOTE | 2019-04-28 03:07 | NUR ---
Pt doing very well. Ambulating around room x1 SBA. Very minimal assist. No complaints at this time. Call light within reach, will continue to monitor
[2019-04-28 03:51] VITALS: BP 159/99; PULSE 85; TEMP 97.5
--- NOTE | 2019-04-28 09:01 | NUR ---
Bedside report from CHARISSE Cuellar. Pt kizzy mod I in rm w/ walker. Gripper socks in place, PICC line flushes without complications, cont to drain some, will ask Dr about removing prior to dc. Pt states he is ready for dc home tomorrow. Tele lead replaced. Took pills whole with water. Ultram prior to therapy. Informed pt that Praveen Lerma's nurse will see him prior to dc tomorrow.
--- NOTE | 2019-04-28 11:21 | NUR ---
Notified FANY Tanner of orders to remove PICC prior to discharge tomorrow.
--- NOTE | 2019-04-28 13:06 | NUR ---
Pt talking with Jeanette, IPR director about asking therapy to eval for adv to cane from walker.
--- NOTE | 2019-04-28 13:12 | NUR ---
Cued pt to elevate BLE while in chair
--- NOTE | 2019-04-28 13:22 | NUR ---
Cl hudson for OP PT at [facility]
--- NOTE | 2019-04-28 13:31 | NUR ---
Faxed Face Sheet, H&P from 04/10 and 04/16, All cardiology consult notes since 04/10, ER physician note, initial pulm consult, and latest Progress Note to Dr. Jimenes, cardiology office per their request.
[2019-04-28 16:56] VITALS: BP 132/86; PULSE 56; TEMP 98.6
--- NOTE | 2019-04-28 20:40 | NUR ---
Faxed Face Sheet, H&P, progress note to PCP, received "OK" fax receipt. Bedside report to CHARISSE Richmond. Pt kizzy mod I in rm w/ cane. Gripper socks in place, CPAP in reach, TEDS were on this afternoon. Informed pt that Pred was stopped and PICC will be removed tomorrow. Cont on Tele.
--- NOTE | 2019-04-29 04:03 | NUR ---
Patient has rested well throughout the night. Requested PRN Ativan at about 0100 and this was administered. Before going to bed this evening, patient complained of numbness to bilateral feet, like they had fallen asleep. Movement intact, pulses present, and denies pain. After elevating legs to assist with swelling, patient stated the numbness had gone away. Patient denies any other needs. Will continue to monitor.
[2019-04-29 04:56] VITALS: BP 155/97; PULSE 65; TEMP 98.1
--- NOTE | 2019-04-29 06:50 | NUR ---
awake resting in bed, bedside shift report received from Yi RN, Maria Guadalupe Parker APRN, in to see patient
--- NOTE | 2019-04-29 07:05 | NUR ---
aquacel dressing to right hip removed, incision with arline and are CD&I, arline removed per order Maria Guadalupe Parker APRN, then steri strips placed over incision, tolerated procedure well
--- NOTE | 2019-04-29 09:15 | NUR ---
resting in bed watching TV, full assessment completed, see interventions for further info
--- NOTE | 2019-04-29 10:17 | NUR ---
resting in bed, AIV services to to remove PICC line
--- NOTE | 2019-04-29 11:27 | NUR ---
up and about in room independently, denies needs
--- NOTE | 2019-04-29 11:56 | NUR ---
up in chair and eating lunch
[2019-04-29] MEDS ORDERED: ZEBETA10 MG PO (13:38)
[2019-04-29] MEDS ORDERED: NORVASC 5MG5 MG/TAB PO (13:39)
[2019-04-29] MEDS ORDERED: PRINIVIL20 MG PO (13:40)
[2019-04-29] MEDS ORDERED: ULTRAM 50MG TAB50 MG PO (13:44)
--- NOTE | 2019-04-29 15:00 | NUR ---
up and about in room independently and denies needs
[2019-04-29 15:37] VITALS: BP 148/89; PULSE 73; TEMP 98.1
--- NOTE | 2019-04-29 16:00 | NUR ---
he is dressed and ready for discharge and friend is here, discharge instructions given to patient and his friend, verbalizes understaanding
[2019-04-29] MEDS ORDERED: ELIQUIS 5MG PO (16:20)
--- NOTE | 2019-04-29 16:23 | NUR ---
discharged per WC
== END 2019-04-29 16:23 | disposition home or self-care (01) | DRG 948 ==
PROVIDERS: ADMIT Internal Medicine
DX: R53.81 Other malaise (principal); N17.9 Acute kidney failure, unspecified; I48.20 Chronic atrial fibrillation, unspecified; M16.11 Unilateral primary osteoarthritis, right hip; I48.0 Paroxysmal atrial fibrillation; G47.33 Obstructive sleep apnea (adult) (pediatric); F32.9 Major depressive disorder, single episode, unspecified; I10 Essential (primary) hypertension; E78.5 Hyperlipidemia, unspecified; F41.9 Anxiety disorder, unspecified; M10.9 Gout, unspecified; K21.9 Gastro-esophageal reflux disease without esophagitis; Z79.82 Long term (current) use of aspirin; Z79.891 Long term (current) use of opiate analgesic; Z99.81 Dependence on supplemental oxygen; Z96.641 Presence of right artificial hip joint; Z87.891 Personal history of nicotine dependence
CPT/HCPCS: 99222-AI; 99232-AI; 99233-AI; 99239; J7512